=== PATIENT | female | born 1990 | race Caucasian/White ===

== ENCOUNTER 2017-04-17 08:57 | Day surgery (SDC) | payer BC ==
[2017-04-17 09:11] VITALS: RESP 16
[2017-04-17] MEDS ORDERED: BUPIVACAINE HCL 0.25% MPF 10 ML SOL INFIL ONE ×2 (09:51)
[2017-04-17] MEDS ORDERED: MIDAZOLAM 2 MG/2 ML SOL ONE (10:36)
[2017-04-17] MEDS ORDERED: FENTANYL 100MCG/2ML SOL ONE (10:36)
[2017-04-17] MEDS ORDERED: HYDROMORPHONE 1 MG/ML SYRINGE ONE ×2 (11:03→12:36)
[2017-04-17] MEDS ORDERED: METOCLOPRAMIDE HYDROCHLORIDE 5 MG/ML SOL ONE (11:15)
[2017-04-17] MEDS ORDERED: ONDANSETRON HCL 4 MG/2 ML SOL ONE (11:15)
[2017-04-17] MEDS ORDERED: PROPOFOL 500 MG/50 ML EMU IV ONE (11:15)
[2017-04-17] MEDS ORDERED: KETOROLAC TROMETHAMINE 30 MG/ML SOL ONE (12:06)
[2017-04-17 13:03] VITALS: PULSE 81
[2017-04-17 14:06] VITALS: BP 109/71; TEMP 98; O2SAT 95
== END 2017-04-17 14:40 | disposition home or self-care (01) ==
LOC: SURG 08:57
PROVIDERS: ATTEND Orthopaedic Surgery
DX: M17.11 Unilateral primary osteoarthritis, right knee (principal); S82.001S Unspecified fracture of right patella, sequela; M65.9 Synovitis and tenosynovitis, unspecified; M25.761 Osteophyte, right knee
CPT/HCPCS: 29873; J1170 ×2; J1885; J2250; J2405; J2704; J2765; J3010